=== PATIENT | male | born 1990 | race Caucasian/White ===

== ENCOUNTER 2019-11-01 08:03 | Outpatient (CLI) | payer MEDICARE, MEDICAID, SELFPAY ==
--- NOTE | 2019-11-01 09:30 | CT_ITS ---
WS: [id number] CT THORACIC SPINE HISTORY: Thoracic fracture TECHNIQUE: Contiguous 2.5 mm axial images are reviewed to thoracic spine. Images are reformatted in s agittal and coronal planes. All CT scans at [facility] use at least one of these dose opt imization techniques: automated exposure control; mA and/or kV adjustment per patient size (includes targeted exams where dose is matched to clinical indication); or iterative reconstruction. DLP: 1296.08 mGycm COMPARISON: 08/09/2019 Healing oblique fractures with various displacement from T5 through T12. No thoracic vertebral body f ractures. Spinous processes are intact. Normal alignment of the thoracic vertebral bodies. Very small endplate hypertrophic osteophytes are d eveloping. T1-2: Poorly visualized due to artifact. T2-3: Poorly visualized due to artifact. T3-4: Normal. T4-5: Normal. T5-6: Normal. T6-7: Normal. T7-8: Normal. T8-9: Normal. T9-10: Small RIGHT paracentral osteophyte and disc complex with slight contact on the RIGHT lateral cord. No interval change. T10-11: Normal. T11-12: Normal. CT/CT thoracic spin wo con* [id number] IMPRESSION: 1. Stages of various healing involving the spinous processes from T5 through T 12. 2. No vertebral body fracture.
--- NOTE | 2019-11-01 09:45 | CT_ITS ---
WS: [id number] CT LUMBAR SPINE, noncontrast. HISTORY: Low back pain TECHNIQUE: Contiguous 2.5 mm axial imaging are performed. Sagittal and coronal reformats are submitte d and reviewed. All CT scans at [facility] use at least one of these dose optimization te chniques: automated exposure control; mA and/or kV adjustment per patient size (includes targeted exa ms where dose is matched to clinical indication); or iterative reconstruction. IV contrast: None DLP: 1642.63 mGycm COMPARISON: 08/09/2019 Normal lumbar alignment. No fractures. Disc spaces are well-maintained. L1 spinous process fracture i s healed with a large amount of calcification. Fracture line is no longer lucent. L1-2: Normal. L2-3: Normal. L3-4: Mild annular disc bulging and mild facet arthropathy. Small thecal sac. Mild disc encroachment upon the subarticular recesses and foramen. Similar to the prior study. L4-5: Mild annular disc bulging and facet arthropathy. Significant encroachment upon the ventral thec al sac and foramen and subarticular recesses. There is at least moderate central, subarticular recess and foraminal stenosis. Probably not significantly progressed since the prior study. L5-S1: Annular disc bulging with a broad-based protrusion centrally. Significant narrowing of the frederick tral canal and subarticular recesses and foramen. Fat in the neural foramen is effaced. Bony narrowin g of the subarticular recesses. Retroperitoneum is negative. CT/CT lumbar spine wo con* [id number] IMPRESSION: 1. Healed oblique L1 spinous process fracture. 2. 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 Progr essive stenosis from L3 to S1. 3. Significant stenosis at L5-S1 with bony narrowing of the subarticular reces ses and foramina. 4. Moderate central, subarticular recess and foraminal stenosis at L4-5.
== END 2019-11-01 08:04 | disposition home or self-care (01) ==
LOC: RADWPI 08:15
PROVIDERS: Family Provider Nurse Practitioner Family; PCP Nurse Practitioner Family; Visit Provider Licensed Practical Nurse
DX: S22.000A Wedge compression fracture of unspecified thoracic vertebra, initial encounter for closed fracture (principal); X58.XXXA Exposure to other specified factors, initial encounter; M48.07 Spinal stenosis, lumbosacral region
CPT/HCPCS: 72128; 72131

== ENCOUNTER → 2020-04-08 08:30 | Outpatient (BNVA) | payer MEDICARE, MEDICAID, SELFPAY | PROVIDERS: Family Provider Nurse Practitioner Family; PCP Nurse Practitioner Family; Visit Provider Anesthesiology Pain Medicine | DX: M51.26 Other intervertebral disc displacement, lumbar region (principal); M51.17 Intervertebral disc disorders with radiculopathy, lumbosacral region; M54.9 Dorsalgia, unspecified; F17.210 Nicotine dependence, cigarettes, uncomplicated | CPT/HCPCS: 99204 ==

== ENCOUNTER 2020-04-17 09:29 | Outpatient (CLI) | payer MEDICARE, MEDICAID, SELFPAY ==
--- NOTE | 2020-04-17 09:30 | MR_ITS ---
WS: [id number] MRI LUMBAR SPINE NONCONTRAST TECHNIQUE: Sagittal T1, T2 and STIR imaging. Axial T1 and T2 imaging. CLINICAL INFORMATION: M51.26 Other intervertebral disc displacement, lumbar region COMPARISON: CT 2019 and MRI July 05, 2019 FINDINGS: Mild lumbar curve. No acute compression. Disc bulging worse L5-S1. L1-L2: Normal. L2-L3: No significant disc bulging. Mild facet arthropathy. Spinal canal and foramen are patent. L3-L4: Mild annular bulging with narrowing of the right subarticular recess. Mild right and no signif icant left foraminal narrowing. Mild to moderate facet arthropathy. L4-L5: Mild disc bulging with mild central canal stenosis. Narrowing of the subarticular recess bilat erally. Moderate facet arthropathy. Mild left and no right foraminal narrowing. Moderate facet arthro uri. L5-S1: Shallow left pericentral disc protrusion impinges the traversing left S1 nerve root in the sub articular recess. Moderate facet arthropathy. Moderate central canal stenosis. Mild right foraminal narrowing. Mild central canal stenosis in the cervical spine with small central protrusion C5-C6 seen on the sco ut imaging with mild central canal stenosis. Disc protrusions in the mid and lower thoracic spine at T7-8 and T9-10. This can be further evaluated with cervical and thoracic spine MRI. MR/MR lumbar spine wo con* [id number] IMPRESSION: 1. Shallow left pericentral protrusion L5-S1 impinges the traversing left S1 n erve root in the subarticular recess. Correlation left S1 nerve root symptoms. This is slightly progressed since 2019 2. Impingement on the right subarticular recess L3-L4 and bilateral L4-5. Mild central canal stenosis L4-5. 3. Small disc protrusions in the cervical and thoracic spine. This can be furt her evaluated with MRI. .
--- NOTE | 2020-04-17 11:30 | XR_ITS ---
WS: [id number] LUMBAR SPINE FLEXION AND EXTENSION TECHNIQUE: 3 views of the lumbar spine: Lateral neutral, flexion, and extension views. CLINICAL INFORMATION: Low back pain COMPARISON: None. FINDINGS: Normal lumbar alignment on the neutral view. No instability on the flexion and extension views. XR/XR lumbar spine f/e only [id number] IMPRESSION: No instability on flexion/extension
== END 2020-04-17 09:30 | disposition home or self-care (01) ==
LOC: RADWPI 09:31
PROVIDERS: Family Provider Nurse Practitioner Family; PCP Nurse Practitioner Family; Visit Provider Licensed Practical Nurse
DX: M51.26 Other intervertebral disc displacement, lumbar region (principal); M50.20 Other cervical disc displacement, unspecified cervical region; M51.24 Other intervertebral disc displacement, thoracic region
CPT/HCPCS: 72120; 72148

== ENCOUNTER → 2020-04-22 14:12 | Outpatient (BNVA) | payer MEDICARE, MEDICAID, SELFPAY | PROVIDERS: Family Provider Nurse Practitioner Family; PCP Nurse Practitioner Family; Visit Provider Anesthesiology Pain Medicine | DX: M51.26 Other intervertebral disc displacement, lumbar region (principal); M54.9 Dorsalgia, unspecified; F17.210 Nicotine dependence, cigarettes, uncomplicated | CPT/HCPCS: 64483; 64484; J1040; J3490 ==

== ENCOUNTER → 2020-05-17 10:49 | Outpatient (BNVA) | payer MEDICARE, MEDICAID, SELFPAY | PROVIDERS: Family Provider Nurse Practitioner Family; PCP Nurse Practitioner Family; Visit Provider Anesthesiology Pain Medicine | DX: M51.17 Intervertebral disc disorders with radiculopathy, lumbosacral region (principal); M54.9 Dorsalgia, unspecified | CPT/HCPCS: 64483; 64484; 99212; J1040; J3490 ==

== ENCOUNTER → 2020-06-14 13:34 | Outpatient (BNVA) | payer MEDICARE, MEDICAID, SELFPAY | PROVIDERS: Family Provider Nurse Practitioner Family; PCP Nurse Practitioner Family; Visit Provider Anesthesiology Pain Medicine | DX: M51.17 Intervertebral disc disorders with radiculopathy, lumbosacral region (principal); M54.9 Dorsalgia, unspecified; F17.210 Nicotine dependence, cigarettes, uncomplicated | CPT/HCPCS: 99213 ==

== ENCOUNTER 2020-06-19 20:00 | Outpatient (CLI) | payer MEDICARE, MEDICAID, SELFPAY | END 2020-06-19 20:01 | disposition home or self-care (01) | LOC: SLEEP 06-20 08:45 | PROVIDERS: Family Provider Nurse Practitioner Family; PCP Nurse Practitioner Family; Visit Provider Nurse Practitioner Family | DX: G47.10 Hypersomnia, unspecified (principal); R06.83 Snoring; R53.83 Other fatigue | CPT/HCPCS: 95810 ==

== ENCOUNTER → 2020-07-24 09:33 | Outpatient (BNVA) | payer MEDICARE, MEDICAID, SELFPAY | PROVIDERS: Family Provider Nurse Practitioner Family; PCP Nurse Practitioner Family; Visit Provider Anesthesiology Pain Medicine | DX: M51.26 Other intervertebral disc displacement, lumbar region (principal); M54.9 Dorsalgia, unspecified; F17.210 Nicotine dependence, cigarettes, uncomplicated | CPT/HCPCS: 99213; 99214 ==

== ENCOUNTER → 2020-08-21 12:36 | Outpatient (BNVA) | payer MEDICARE, MEDICAID, SELFPAY | PROVIDERS: Family Provider Nurse Practitioner Family; PCP Nurse Practitioner Family; Visit Provider Anesthesiology Pain Medicine | DX: M51.26 Other intervertebral disc displacement, lumbar region (principal); M54.16 Radiculopathy, lumbar region; M54.9 Dorsalgia, unspecified; F17.210 Nicotine dependence, cigarettes, uncomplicated | CPT/HCPCS: 64483; 64484; 99212; J1040; J3490 ==

== ENCOUNTER → 2020-09-18 10:51 | Outpatient (BNVA) | payer MEDICARE, MEDICAID, SELFPAY | PROVIDERS: Family Provider Nurse Practitioner Family; PCP Nurse Practitioner Family; Visit Provider Anesthesiology Pain Medicine | DX: G89.29 Other chronic pain (principal); M51.26 Other intervertebral disc displacement, lumbar region; M51.17 Intervertebral disc disorders with radiculopathy, lumbosacral region; M54.9 Dorsalgia, unspecified; F17.210 Nicotine dependence, cigarettes, uncomplicated | CPT/HCPCS: 99213; 99214 ==

== ENCOUNTER → 2020-11-13 09:32 | Outpatient (BNVA) | payer MEDICARE, MEDICAID, SELFPAY | PROVIDERS: Family Provider Nurse Practitioner Family; PCP Nurse Practitioner Family; Visit Provider Anesthesiology Pain Medicine | DX: G89.29 Other chronic pain (principal); M51.16 Intervertebral disc disorders with radiculopathy, lumbar region; M54.9 Dorsalgia, unspecified; F17.210 Nicotine dependence, cigarettes, uncomplicated; M54.5 Low back pain; M89.29 Other disorders of bone development and growth, multiple sites | CPT/HCPCS: 99214 ==

== ENCOUNTER 2020-11-13 14:56 | Outpatient (RCR) | payer MEDICARE, MEDICAID, SELFPAY | END 2020-12-11 23:59 | disposition home or self-care (01) | LOC: SPT 14:56 | PROVIDERS: PCP Nurse Practitioner Family; Referring Provider Anesthesiology Pain Medicine; Visit Provider Anesthesiology Pain Medicine | DX: M54.5 Low back pain (principal); M89.29 Other disorders of bone development and growth, multiple sites | CPT/HCPCS: 97110; 97161; 99214 ==

== ENCOUNTER → 2020-11-22 13:13 | Outpatient (BNVA) | payer MEDICARE, MEDICAID, SELFPAY | PROVIDERS: PCP Nurse Practitioner Family; Visit Provider Anesthesiology Pain Medicine | DX: M51.16 Intervertebral disc disorders with radiculopathy, lumbar region (principal); M54.9 Dorsalgia, unspecified; F17.210 Nicotine dependence, cigarettes, uncomplicated | CPT/HCPCS: 64483; 64484 ==

== ENCOUNTER → 2020-12-10 14:55 | Outpatient (BNVA) | payer MEDICARE, MEDICAID, SELFPAY | PROVIDERS: PCP Nurse Practitioner Family; Referring Provider Anesthesiology Pain Medicine; Visit Provider Orthopaedic Surgery | DX: M54.5 Low back pain (principal) | CPT/HCPCS: 72110 ==

== ENCOUNTER → 2020-12-16 08:49 | Outpatient (BNVA) | payer MEDICARE, MEDICAID, SELFPAY | PROVIDERS: PCP Nurse Practitioner Family; Visit Provider Anesthesiology Pain Medicine | DX: M51.26 Other intervertebral disc displacement, lumbar region (principal); M51.17 Intervertebral disc disorders with radiculopathy, lumbosacral region; M51.16 Intervertebral disc disorders with radiculopathy, lumbar region; M54.9 Dorsalgia, unspecified; F17.210 Nicotine dependence, cigarettes, uncomplicated | CPT/HCPCS: 99214 ==

== ENCOUNTER → 2020-12-20 11:53 | Outpatient (BNVA) | payer MEDICARE, MEDICAID, SELFPAY | PROVIDERS: PCP Nurse Practitioner Family; Visit Provider Orthopaedic Surgery | DX: Z20.822 Contact with and (suspected) exposure to COVID-19 (principal) | CPT/HCPCS: 87635 ==

== ENCOUNTER → 2020-12-30 13:43 | Outpatient (BNVA) | payer MEDICARE, MEDICAID, SELFPAY | PROVIDERS: PCP Nurse Practitioner Family; Visit Provider Orthopaedic Surgery | DX: Z01.818 Encounter for other preprocedural examination (principal); Z20.822 Contact with and (suspected) exposure to COVID-19 | CPT/HCPCS: 87635 ==

== ENCOUNTER 2021-01-03 11:43 | Day surgery (SDC) | payer MEDICARE, MEDICAID, SELFPAY ==
[2021-01-02 13:42] VITALS: BMI 37.5
[2021-01-03] VITALS (9 sets, daily range): BP systolic 110–142; BP diastolic 56–95; PULSE 99–121; RESP 18–22; TEMP 36.6–37; O2SAT 92–96
--- NOTE | 2021-01-03 | SCC_ITS ---
Procedure Done: Left L5/S1 laminectomy with partial facetectomy and diskectomy 20.7 seconds of fluoroscopic guidance, for a cumulative dose of 12.50 mGy, was provided to Dr. Mcgee by the radiology department. C-arm images of the lumbar spine were saved for the patient's permanent record. [facility]
[2021-01-03] MEDS: sodium chloride 0.9% 1,000 ML 30 ML IV (13:02)
--- NOTE | 2021-01-03 13:29 | W.PM.OPSUD ---
Surgery/Procedure H&P Update DATE OF PROCEDURE: January 03, 2021 DATE H&P PERFORMED: 12/10/20 H&P UPDATE INFORMATION: I have reviewed H&P completed within last 30 days, I have examined patient prior to procedure and No changes to prior documentation PREOP DIAGNOSIS: L5/S1 disc herniation left PLANNED PROCEDURE: Operation Date: 12/25/20 14:30 Proposed Procedures p L5-S1 mis decompression with discectomy 42173, 38951 M51.16(Not Applicable) - Ismael Mcgee DO Operation Date: 01/03/21 13:10 Proposed Procedures p L5-S1 Mis Decompression w/ descectomy 12358 46345 M51.16(Not Applicable) - Ismael Mcgee DO
--- NOTE | 2021-01-03 13:52 | ANES.PREANE2 ---
Pre-Anesthetic Assessment Pre-Anesthetic Assessment: Height/Weight: Height 1.91 m Weight 136.078 kg Temp Pulse Resp BP Pulse Ox 98.6 F 107 H 18 129/82 96 01/03/21 12:01 01/03/21 12:01 01/03/21 12:01 01/03/21 12:01 01/03/21 12:01 Preop Diagnosis: L5/S1 disc herniation left Proposed Procedure: Operation Date: 12/25/20 14:30 Proposed Procedures p L5-S1 mis decompression with discectomy 26520, 80607 M51.16(Not Applicable) - Ismael Mcgee DO Operation Date: 01/03/21 13:10 Proposed Procedures p L5-S1 Mis Decompression w/ descectomy 89331 67742 M51.16(Not Applicable) - Ismael Mcgee DO Was Beta Ana M taken within 24 hours: N/A Was Clonidine taken within 24 hours: N/A Last intake: Intake Last Liquid Date 01/02/21 Last Solid Date 01/02/21 Social: Social History: Tobacco and No alcohol Exam: Pre-Anes Outpt Exam: alert, oriented x 3 and regular rate & rhythm Airway: Submandibular: WNL Cervical ROM: WNL MP: 2 Dentition: Loose Pulmonary: Pulmonary: COPD Metabolic: Metabolic: Morbid obesity Musc/skel: Musc/skel: Lower Back Pain Anesthetic Plan: ASA status: 3 Anesthesia: General Risk of > 500 ml blood loss (7ml/kg in children): No Meds/Allergies Current Medications: Current Medications Generic Name Dose Route Start Last Admin Trade Name Freq PRN Reason Stop Dose Admin Sodium Chloride 1,000 mls @ 30 ml s/hr 01/03/21 12:00 01/03/21 13:02 Sodium Chloride 0.9% IV 01/04/21 11:59 30 mls/hr .Q24H ROGER Administration PFSH Anesthesia PFSH: Medical History Displacement of lumbar intervertebral disc Fracture of lumbar spine Fracture, thoracic vertebra, compression Surgical History History of cardiac radiofrequency ablation (~2005) Family History Grandmother CAD (coronary artery disease) Grandfather Diabetes Mother Arthritis Social History Smoking and tobacco status: current every day smoker cigarettes [ Other cigarette details: 0.5-1 PK PER DAY ] Alcohol intake: current Alcohol intake frequency: few times a week Lives independently: Yes Household members: family Marital status: Single Current occupational status: disabled History of recent travel: No Data Anesthesia Cardiac Studies: No Data to Display
--- NOTE | 2021-01-03 17:16 | PM.OP ---
Operative Report Date of procedure: January 03, 2021 Pre-op Diagnosis: L5/S1 disc herniation left Post-op diagnosis: same Procedure Done: Left L5/S1 laminectomy with partial facetectomy and diskectomy Surgeon: Ismael Mcgee Anesthesia: General Estimated blood loss (mL): 5 Condition: stable Disposition: PACU Procedure: Left L5/S1 laminectomy with partial facetectomy and diskectomy Patient is brought to the operative suite. After undergoing anesthesia they are placed in the supine position. All areas of impingement are well padded. Patient is then prepped and draped in the normal sterile fashion. A skin incision is made over the L5/S1 level. This is confirmed under c-arm guidance. A series of dilators are passed and the tubular retractor is docked on the L5 lamina. A bovie is used to clear the soft tissue off the lamina and the L 5/S1 facet joint. A high speed lashaun is then used to perform the laminectomy and take down the medial aspect of the L 5/S1 facet joint. A kerrison rongeure was then used to take down the remaining lamina and smooth the edge of the laminectomy up to the point where the ligamentum flavum attaches. Attention was then brought to the medial aspect of the facet joint. The remaining medial aspect of the superior and inferior aspect of the facet joint were taken down with the kerrison from the pedicle of L5 to S1. The facet joint had significant hypertrophy. Attention was then brought to the Ligamentum Flavum. The ligament was taken down from the lamina of L5 to S1 and out medially to the remaining facet joint. The ligament was thick. The dura was then exposed. The dura was in good repair. Nerve retractor was then placed to retract the S1 nerve medially. THe L5/S1 disk was identified. A micro nerve hook was used to open up tissue above disk. Disk fragments were removed with a micro pituitary. Once all the disc was adequately removed that was compressing on the S1 nerve displace was irrigated. The L5 nerve was then traced with a curette out the L5/S1 foramen and found to be adequately decompressed. The S1 nerve was traced with a curette around the S1 pedicle. The lateral recess was opened with a kerrison helping to further decompress the S1 nerve. Wound is then irrigated copiously with saline and surgiflo is used to stop any bleeding. The tubular retractor is removed and the wound is closed with vicryl and monocryl suture. Glue is then used to protect the wound. A sterile dressing is then placed. Patient was then placed in the supine position and transferred to the PACU in stable condition.
--- NOTE | 2021-01-03 17:22 | XR_ITS ---
WS: [id number] C-ARM RADIOGRAPHS LUMBAR SPINE; 4 IMAGES HISTORY: OR PICS COMPARISON: 12/10/2020 Intraoperative imaging during spine decompression and discectomy at L5-S1. Marker placed over the L5- S1 level. XR/XR lumbar spine 2-3V* [id number] IMPRESSION: Intraoperative decompression at L5-S1.
--- NOTE | 2021-01-03 17:52 | SUR.PHASEI ---
1752 pt is restless , rubbing face, pt does open eyes and responds verbally , then quickly back to sleep vss sats 89% on ra pt placed on 3lnc and sats quickly up to 93% resp even and unlabored pt moves all ext to command, strongly, vss.
--- NOTE | 2021-01-03 18:03 | ANE.PACU2 ---
Inpatient post-anesthesia follow up: Airway intact: Yes Vital signs: Temperature 98.6 F Pulse Rate 109 Respiratory Rate 19 Blood Pressure 124/64 Pulse Oximetry 92 Oxygen Delivery Me thod Nasal Cannula Oxygen Flow Rate 3 Fraction of Inspir ed Oxygen Hydration adequate: Yes Nausea and vomiting: No Pain level: 2 Mental status: Baseline
[2021-01-03] MEDS: HYDROcodone-acetaminophen 5-325 mg Tablet 1 TAB PO (18:50)
== END 2021-01-03 19:17 | disposition home or self-care (01) ==
PROVIDERS: PCP Nurse Practitioner Family; Visit Provider Orthopaedic Surgery
PROC: (CPT 63005; principal; 2021-01-03 12:40)
DX: M51.27 Other intervertebral disc displacement, lumbosacral region (principal); J44.9 Chronic obstructive pulmonary disease, unspecified; E66.01 Morbid (severe) obesity due to excess calories; Z68.37 Body mass index [BMI] 37.0-37.9, adult; F17.210 Nicotine dependence, cigarettes, uncomplicated
CPT/HCPCS: 63047; 72100; 76000; J0690; J1100; J1170; J2250; J2405; J2704; J2710; J3010; J3490; J7030

== ENCOUNTER 2021-03-28 06:00 | Outpatient (RCR) | payer MEDICARE, MEDICAID, SELFPAY | END 2021-04-12 23:59 | disposition home or self-care (01) | LOC: SPT 06:00 | PROVIDERS: PCP Nurse Practitioner Family; Referring Provider Orthopaedic Surgery; Visit Provider Orthopaedic Surgery | DX: Z47.89 Encounter for other orthopedic aftercare (principal) | CPT/HCPCS: 97110; 97161; 97530 ==

== ENCOUNTER → 2021-04-03 09:44 | Outpatient (BNVA) | payer MEDICARE, MEDICAID, SELFPAY | PROVIDERS: PCP Nurse Practitioner Family; Visit Provider Anesthesiology Pain Medicine | DX: M51.16 Intervertebral disc disorders with radiculopathy, lumbar region (principal); M51.17 Intervertebral disc disorders with radiculopathy, lumbosacral region; M51.26 Other intervertebral disc displacement, lumbar region; M25.552 Pain in left hip; F17.210 Nicotine dependence, cigarettes, uncomplicated; Z79.891 Long term (current) use of opiate analgesic | CPT/HCPCS: 99214 ==

== ENCOUNTER 2021-04-13 06:00 | Outpatient (RCR) | payer MEDICARE, MEDICAID, SELFPAY | END 2021-05-13 23:59 | disposition home or self-care (01) | LOC: SPT 06:00 | PROVIDERS: PCP Nurse Practitioner Family; Referring Provider Orthopaedic Surgery; Visit Provider Orthopaedic Surgery | DX: Z47.89 Encounter for other orthopedic aftercare (principal) | CPT/HCPCS: 97110 ==

== ENCOUNTER 2021-04-15 10:37 | Outpatient (CLI) | payer MEDICARE, MEDICAID, SELFPAY ==
--- NOTE | 2021-04-15 11:00 | MR_ITS ---
WS: [id number] MRI LUMBAR SPINE NONCONTRAST HISTORY: M51.16 - Intervertebral disc disorders with radiculopathy..., Recent surgery. LEFT leg pain and foot tingling. COMPARISON: 04/17/2020 TECHNIQUE: Sagittal and axial multisequence imaging is submitted. Mild straightening of the normal lumbar lordosis. Mild disc desiccation at L5-S1. No loss of disc spa ce height. No marrow edema or fracture. Conus terminates normally at L1. L1-L2: Normal. L2-L3: Mild facet arthritis. No stenosis. L3-L4: Mild annular disc bulging with facet and ligamentum flavum hypertrophy. Increase fluid in the facet joints. Very similar appearance to the prior examination. Mild to moderate narrowing and encroa chment of the foramen. L4-L5: Diffuse annular disc bulging is slightly asymmetric to the LEFT. Mild ligamentum flavum diseas e and facet arthritis. Fluid in the facet joints bilaterally. Mild central stenosis with mild bilater al subarticular and foraminal stenosis. Slightly greater disc contact on the LEFT L5 nerve root with minimal displacement. Similar to the prior study. L5-S1: There is increased soft tissue LEFT paracentral and LEFT lateral recess at the site of the skylar or surgery. There is deformity thecal sac and displacement of the LEFT S1 nerve root. Thecal sac is b eing deformed at least mild central stenosis. MR/MR lumbar spine wo con* [id number] IMPRESSION: 1. Increased soft tissue LEFT paracentral and LEFT lateral recess at L5-S1 def orming and displacing the LEFT thecal sac and S1 nerve root. With recent surgic al history cannot exclude fibrosis versus recurrent disc. Recommend follow-up l umbar spine MRI with contrast to differentiate scar from recurrent disc. 2. Mild central stenosis at L5-S1. 3. Mild central with mild bilateral subarticular foraminal stenosis at L4-5, s imilar to the prior study. Slightly greater contact on the LEFT L5 nerve root.
== END 2021-04-15 10:38 | disposition home or self-care (01) ==
LOC: RADSHAW 10:42
PROVIDERS: PCP Nurse Practitioner Family; Visit Provider Orthopaedic Surgery
DX: M51.16 Intervertebral disc disorders with radiculopathy, lumbar region (principal); M48.07 Spinal stenosis, lumbosacral region
CPT/HCPCS: 72148

== ENCOUNTER → 2021-05-29 10:21 | Outpatient (BNVA) | payer MEDICARE, MEDICAID, SELFPAY | PROVIDERS: PCP Nurse Practitioner Family; Visit Provider Anesthesiology Pain Medicine | DX: G89.29 Other chronic pain (principal); M48.062 Spinal stenosis, lumbar region with neurogenic claudication; M51.16 Intervertebral disc disorders with radiculopathy, lumbar region; M25.552 Pain in left hip; F17.210 Nicotine dependence, cigarettes, uncomplicated | CPT/HCPCS: 99214 ==

== ENCOUNTER → 2021-06-24 13:28 | Outpatient (BNVA) | payer MEDICARE, MEDICAID, SELFPAY | PROVIDERS: PCP Nurse Practitioner Family; Visit Provider Orthopaedic Surgery | DX: Z20.822 Contact with and (suspected) exposure to COVID-19 (principal); Z01.812 Encounter for preprocedural laboratory examination | CPT/HCPCS: 87635 ==

== ENCOUNTER 2021-06-30 05:55 | Day surgery (SDC) | payer MEDICARE, MEDICAID, SELFPAY ==
[2021-06-27 13:52] VITALS: BMI 38.1
[2021-06-30] VITALS (10 sets, daily range): BP systolic 123–144; BP diastolic 78–95; PULSE 77–99; RESP 14–22; TEMP 36.1–36.6; O2SAT 92–98
--- NOTE | 2021-06-30 | SCC_ITS ---
Procedure Done: Bilateral laminectomy with partial facetectomies 13.1 seconds of fluoroscopic guidance, for a cumulative dose of 9.30 mGy, was provided to Dr. Mcgee by the radiology department. C-arm images of the lumbar spine were saved for the patient's permanent record. [facility]
--- NOTE | 2021-06-30 | XR_ITS ---
WS: [id number] INTRAOPERATIVE TECHNIQUE: 2 Spot fluoroscopic images for intraoperative purposes. FLUOROSCOPY TIME: 13.1 seconds CLINICAL INFORMATION: decompression COMPARISON: None. FINDINGS: Localization marker projected over the L4-5 interspace XR/XR lumbar spine 1V [id number] IMPRESSION: Images obtained for intraoperative purposes.
[2021-06-30] MEDS: sodium chloride 0.9% 1,000 ML 30 ML IV (06:31)
--- NOTE | 2021-06-30 06:46 | P.HP_ITS ---
Providers/Chief Complaint Primary Care Provider: Skyler Schrader NP Chief Complaint: lumbar decompression History of Present Illness Aman Prince is a 31 year old male ack pain is still getting worse, he has started a new job washing dishes and this is aggravating his pain. Pain going down bilateral legs now alternating back and forth. lateral thighs failed conservative tx Review of Systems Narrative: General ROS: negative for weight changes, fever ENT ROS: negative for nasal congestion, drainage or bleeding, sore throat, dysphagia or ear pain Eyes: PERRL Hematological and Lymphatic ROS: negative for swollen glands or abnormal bleeding Endocrine ROS: negative for polyuria/polydpsia or new changes in weight Respiratory ROS: negative for cough, shortness of breath, or wheezing Cardiovascular ROS: negative for chest pain or dyspnea on exertion Gastrointestinal ROS: negative for reflux, abdominal pain, change in bowel habits, or black or bloody stools Musculoskeletal ROS: negative for back pain, neck pain, or joint pain or swelling except for current problem Neurological ROS: negative for TIA or stoke symptoms Skin: no rashes Medications/Allergies Home Medications Medication Instructions Recorded Confirmed Last Taken Type acetaminophen 500 mg tablet 500 mg PO .2 TID PRN tab 04/08/20 06/30/21 06/29/21 History montelukast 10 mg tablet 10 mg PO DAILY 04/08/20 06/30/21 06/29/21 History magnesium 250 mg tablet 250 mg PO DAILY 05/17/20 06/30/21 06/29/21 History duloxetine 30 mg capsule,delayed 30 mg PO DAILY 06/14/20 06/30/21 06/29/21 History release celecoxib 400 mg capsule 400 mg PO DAILY #30 cap MDD 1 04/03/21 06/30/21 Rx aripiprazole 10 mg tablet 10 mg PO DAILY 05/13/21 06/30/21 06/29/21 History gabapentin 800 mg tablet 800 mg PO TID #90 tab 05/29/21 06/30/21 06/29/21 Rx tizanidine [Zanaflex] 4 mg PO BID PRN 06/27/21 06/30/21 06/29/21 History Allergies Allergy/AdvReac Type Severity Reaction Status Date / Time No Known Allergies Allergy Verified 05/29/21 10:32 PFSH Acute PFSH: Medical History Displacement of lumbar intervertebral disc Fracture of lumbar spine Fracture, thoracic vertebra, compression Surgical History History of cardiac radiofrequency ablation (~2005) Family History Grandmother CAD (coronary artery disease) Grandfather Diabetes Mother Arthritis Social History Alcohol intake: current Alcohol intake frequency: few times a week Lives independently: Yes Household members: family Marital status: Single Current occupational status: disabled History of recent travel: No Vitals/I&O/Wt Last Vital Signs Temp 97 F L 06/30/21 06:02 Pulse 83 06/30/21 06:02 Resp 16 06/30/21 06:02 BP 128/78 06/30/21 06:02 Pulse Ox 98 06/30/21 06:02 Physical Exam Narrative: EXAM NARRATIVE: CONSTITUTIONAL: The patient is a normal appearing [] in no apparent distress. GENERAL: Patient in no acute distress. CARDIAC: Regular rate and rhythm. CHEST: Normal inspiratory effort, normal respiratory rate. ABDOMEN: Soft and nontender. SKIN: Clear, warm and intact. NEURO?PSYCH: The patient is alert and oriented to person, place and time. Sensorv /SILT Motor StrengthShoulder abduction C5 5/5Wrist extension C6 5/5Elbow extension C7 5/5Hand Straw Hat Brim Cutter Operator C8 5/5Finger abduction T15/5 Radial/ Ulnar/ Median n intact LowerSensory (SILT)Motor StrengthHin flexion L2/3Ant/inner thigh 5/5Hip adduction L2/3 5/5Knee extension L4 Lat thigh, 5/5Toe dorsiflexion L5 5/5Ankle dorsiflexion L5/ [id number] flexion S1 5/5 DTRBleeps 2+Triceps 2+Brachioradialis 2+Patellar 2+Achilles 2+ MUSCULOSKELETAL: [] UPPEREXTREMITIES: The patient had full active ROM in fingers, wrist, elbow, and shoulder. The patient demonstrated ability to fully flex/extend/abduct/adduct fingers, make ok sign, cross 2nd/3rd digits, extend 1st digit fully.. Radial pulse 2+, CR<2 seconds. LOWER EXTREMITIES: Pt has full, active ROM of toes, ankle, knee, and hip. Dorsalis pedis/posterior tibialis pulses 2+, CR<2 seconds. SPINE: Skin warm, dry, intact. A&P Assessment and plan (1) Lumbar stenosis with neurogenic claudication: L4/5 lumbar decompression Status: Acute Attestations Medical Necessity Statement*: failed conservative tx Coding Level of Care Code Acute Ancillary Services Manager Therapy for [facility] Fwd Diagnoses Lumbar stenosis with neurogenic claudication M48.062
--- NOTE | 2021-06-30 06:52 | ANES.PREANE2 ---
Pre-Anesthetic Assessment Pre-Anesthetic Assessment: Height/Weight: Height 1.91 m Weight 138.346 kg Temp Pulse Resp BP Pulse Ox 97 F L 83 16 128/78 98 06/30/21 06:02 06/30/21 06:02 06/30/21 06:02 06/30/21 06:02 06/30/21 06:02 Preop Diagnosis: L5/S1 disc herniation left Proposed Procedure: Operation Date: 06/30/21 07:00 Proposed Procedures p Lumbar Spine Decompression 05335 M48.062(Not Applicable) - Ismael Mcgee, DO Was Beta Ana M taken within 24 hours: N/A Was Clonidine taken within 24 hours: N/A Last intake: Intake Last Liquid Date 06/30/21 Last Liquid Time 00:00 Last Solid Date 06/30/21 Last Solid Time 00:00 Social: Social History: Tobacco Exam: Pre-Anes Outpt Exam: alert, oriented x 3 and regular rate & rhythm Airway: Submandibular: WNL Cervical ROM: WNL MP: 2 Dentition: Chipped Pulmonary: Pulmonary: COPD Metabolic: Metabolic: Morbid obesity Musc/skel: Musc/skel: Lower Back Pain Anesthetic Plan: ASA status: 3 Anesthesia: General Risk of > 500 ml blood loss (7ml/kg in children): No Meds/Allergies Current Medications: Current Medications Generic Name Dose Route Start Last Admin Trade Name Freq PRN Reason Stop Dose Admin Sodium Chloride 1,000 mls @ 30 ml s/hr 06/30/21 06:00 06/30/21 06:31 Sodium Chloride 0.9% IV 07/01/21 05:59 30 mls/hr .Q24H ROGER Administration PFSH Anesthesia PFSH: Medical History Displacement of lumbar intervertebral disc Fracture of lumbar spine Fracture, thoracic vertebra, compression Surgical History History of cardiac radiofrequency ablation (~2005) Family History Grandmother CAD (coronary artery disease) Grandfather Diabetes Mother Arthritis Social History Alcohol intake: current Alcohol intake frequency: few times a week Lives independently: Yes Household members: family Marital status: Single Current occupational status: disabled History of recent travel: No Data Anesthesia Cardiac Studies: No Data to Display
--- NOTE | 2021-06-30 08:15 | P.OP_ITS ---
Operative Report Date of procedure: June 30, 2021 Pre-op Diagnosis: L4/5 lumbar stenosis with neurogenic claudication Post-op diagnosis: same Procedure Done: Bilateral laminectomy with partial facetectomies Surgeon: Ismael Mcgee Asset Protection Professional: Cedrick Tuttle Asset Protection Professional: The certified surgical first assistant, Cedrick Tuttle, PAC was needed for his expertise under the microscope. He was important and necessary throughout the procedure to complete in a safe and timely manner. He assisted with patient positioning prepping and draping tissue retraction suctioning of the operative field protection of the dural sac and tissue closure Anesthesia: General Estimated blood loss (mL): 5 Condition: stable Disposition: PACU Procedure: Bilateral laminectomy with partial facetectomies Patient is brought to the operative suite. After undergoing anesthesia they are placed in the prone position. All areas of impingement are well padded. Patient is then prepped and draped in the normal sterile fashion. A skin incision is made over the L4/5 level. This is confirmed under c-arm guidance. A series of dilators are passed and the tubular retractor is docked on the L4 lamina. A bovie is used to clear the soft tissue off the lamina and the L 4/5 facet joint. A high speed lashaun is then used to perform the laminectomy and take down the medial aspect of the L 4/5 facet joint. A kerrison rongeure was then used to take down the remaining lamina and smooth the edged of the laminectomy up to the point where the ligamentum flavum attaches. Attention was then brought to the medial aspect of the facet joint. The remain ing medial aspect of the superior and inferior aspect of the facet joint were taken down with the kerrison from the pedicle of L4 to L 5. The facet joint had significant hypertrophy. Attention was then brought to the Ligamentum Flavum. The ligament was taken down from the lamina of L4 to L5 and out medially to the remaining facet joint. The ligament was thick. The dura was then exposed. The dura was in good repair. The L4 nerve was then traced with a curette out the L4/5 foramen and found to be adequately decompressed. The L5 nerve was traced with a curette around the L5 pedicle. The lateral recess was opened with a kerrison helping to further decompress the L5 nerve. The tubular retractor was then tilted to the contralateral side. The bovie was used to take down the soft tissue on the spinous process. The high speed lashaun was used to take down the spinous process and then the contralateral lamina of L4. The kerrison rongeur was used to take down the remaining lamina to the point where the ligamentum flavum attached and the ligamentum flavum was taken down from L4 to L5. The kerrison rongeur was then used to reach across and take down the medial aspect of the contralateral L4/5 facet joint.The currete was used to trace the contralateral L4 nerve out the L4/5 foramen to make sure it was decompressed adequatesly and the L5 was traced around the L5 pedicle. The lateral recess was opened further with the kerrison to ensure the L5 is adequately decompressed. Wound is then irrigated copiously with saline and surgiflo is used to stop any bleeding. The tubular retractor is removed and the wound is closed with vicryl and monocryl suture. Glue is then used to protect the wound. A sterile dressing is then placed. Patient was then placed in the supine position and transferred to the PACU in stable condition.
--- NOTE | 2021-06-30 08:23 | P.PCN_ITS ---
PACU note PACU note: VSS, Good respiratory effort, report to TRADE EMBALMER Post-Anesthesia Exam: awake
--- NOTE | 2021-06-30 08:23 | PM.PACU ---
PACU note PACU note: VSS, Good respiratory effort, report to NUCLEAR TECHNOLOGIST Post-Anesthesia Exam: awake
--- NOTE | 2021-06-30 08:24 | SUR.PHASEI ---
PT AWAKES TO VOICE , FOLLOWS COMMANDS, PT MOVES BILAT FEET STRONGLY, PT ON RA TRIAL, VSS.
--- NOTE | 2021-06-30 08:32 | SUR.PHASEI ---
PT PLACED ON 3LNC TO KEEPS SATS OVER 92% PT SLEEPS UNLESS DISTURBED AND DENIES PAIN AT THIS TIME MONITOR SR NO ECTOPY, VSS.
[2021-06-30 09:27] LABS: Glucose Point of Care 81 mg/dL (70-110)
--- NOTE | 2021-06-30 15:40 | ANE.PACU2 ---
Inpatient post-anesthesia follow up: Airway intact: Yes Vital signs: Temperature 97 F Pulse Rate 77 Respiratory Rate 16 Blood Pressure 136/80 Pulse Oximetry 98 Oxygen Delivery Me thod Room Air Oxygen Flow Rate 3 Fraction of Inspir ed Oxygen Hydration adequate: Yes Nausea and vomiting: No Pain level: 3 Mental status: Baseline
== END 2021-06-30 09:25 | disposition home or self-care (01) ==
PROVIDERS: PCP Nurse Practitioner Family; Visit Provider Orthopaedic Surgery
PROC: (CPT 63005; principal; 2021-06-30 07:00)
DX: M48.062 Spinal stenosis, lumbar region with neurogenic claudication (principal); J44.9 Chronic obstructive pulmonary disease, unspecified; E66.01 Morbid (severe) obesity due to excess calories; Z68.34 Body mass index [BMI] 34.0-34.9, adult; Z82.49 Family history of ischemic heart disease and other diseases of the circulatory system; Z83.3 Family history of diabetes mellitus
CPT/HCPCS: 63047; 36416; 72020; 76000; 82962; 96365; J0330; J0690; J1100; J2405; J2704; J2710; J3010; J3490; J7030

== ENCOUNTER → 2021-07-24 12:24 | Outpatient (BNVA) | payer MEDICARE, MEDICAID, SELFPAY | PROVIDERS: PCP Nurse Practitioner Family; Visit Provider Anesthesiology Pain Medicine | DX: M51.26 Other intervertebral disc displacement, lumbar region (principal); M48.062 Spinal stenosis, lumbar region with neurogenic claudication; M51.16 Intervertebral disc disorders with radiculopathy, lumbar region; M25.552 Pain in left hip; M79.605 Pain in left leg; Z79.891 Long term (current) use of opiate analgesic | CPT/HCPCS: 99213 ==

== ENCOUNTER → 2021-10-02 13:37 | Outpatient (BNVA) | payer MEDICARE, MEDICAID, SELFPAY | PROVIDERS: PCP Nurse Practitioner Family; Visit Provider Anesthesiology Pain Medicine | DX: M51.26 Other intervertebral disc displacement, lumbar region (principal); M48.062 Spinal stenosis, lumbar region with neurogenic claudication; M51.16 Intervertebral disc disorders with radiculopathy, lumbar region; M25.552 Pain in left hip; Z79.891 Long term (current) use of opiate analgesic | CPT/HCPCS: 99214 ==

== ENCOUNTER → 2021-10-21 13:40 | Outpatient (BNVA) | payer MEDICARE, MEDICAID, SELFPAY | PROVIDERS: PCP Nurse Practitioner Family; Visit Provider Nurse Practitioner Family | DX: Z20.822 Contact with and (suspected) exposure to COVID-19 (principal); J45.909 Unspecified asthma, uncomplicated; E66.9 Obesity, unspecified; R43.0 Anosmia; J06.9 Acute upper respiratory infection, unspecified; Z71.89 Other specified counseling; F17.200 Nicotine dependence, unspecified, uncomplicated | CPT/HCPCS: 87635 ==

== ENCOUNTER 2021-10-28 09:28 | Outpatient (CLI) | payer MEDICARE, MEDICAID, SELFPAY ==
--- NOTE | 2021-10-28 09:39 | MR_ITS ---
WS: [id number] MRI LUMBAR SPINE WITH AND WITHOUT CONTRAST HISTORY: Spinal stenosis. Prior lumbar spine surgery. COMPARISON: 04/15/2021 and 04/17/2020 TECHNIQUE: Sagittal and axial multisequence imaging is submitted. Sagittal and axial T1 fat sat seque nces post-MultiHance 20 cc IV. Straightening of the normal cervical lordosis. Mild disc and osteophyte contact on the ventral cervic al cord at C3-4 and C4-5. Mild straightening of the normal posterior lumbar alignment. Mild disc desiccation and narrowing at L 5-S1. No marrow edema or fractures. Conus terminates normally at L1-2 disc level. L1-L2: No stenosis. L2-L3: Mild ligamentum flavum hypertrophy and facet arthritis. No high-grade stenosis. L3-L4: Mild annular disc bulging with mild ligamentum flavum and facet arthritis. Mild narrowing of t he central canal and foramina. L4-L5: Mild annular disc bulging and osteophytic ridging. Disc bulging is asymmetric to the LEFT. Mil d central, bilateral subarticular and foraminal stenosis. Stenosis most likely due to congenital smal l central stenosis and short pedicles. Small amount of fluid in the facet joints. There is disc conta ct on the traversing L5 nerve roots. L5-S1: Diffuse asymmetric disc bulging. Again noted is a LEFT paracentral and proximal foraminal incr eased soft tissue contacting the LEFT S1 nerve root. Deformity upon the thecal sac. There is at least mild if not moderate central stenosis. Mild bilateral foraminal stenosis. On the postcontrast imagin g there is enhancement surrounding the thecal sac and the LEFT facet joint. There is also mild enhanc ement within the soft tissue in the LEFT paracentral region suggesting this is fibrosis and postsurgi carmelo and not related to recurrent disc. There is enhancement through the laminectomy defect at L4-5 and L5-S1. No abscess. MR/MR lumbar spine wo/w con [id number] IMPRESSION: 1. 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 2. Postsurgical changes and laminectomy defects on the LEFT at L4-5 and L5-S1. No abscess. 3. Soft tissue in the LEFT paracentral and proximal foramen at L5-S1 does enha nce suggesting this is related to gliosis and fibrosis and not a recurrent disc protrusion. There is bony narrowing of the LEFT subarticular recess. 4. Mild central and foraminal narrowing at L3-4. 5. Mild central, bilateral subarticular recess and foraminal stenosis at L4-5 with mild disc contact on the traversing L5 nerve roots, unchanged. 6. Mild bilateral foraminal stenosis at L5-S1.
[2021-10-28] MEDS: gadobenate dimeglumine 20 mL vial IV (11:42)
== END 2021-10-28 09:29 | disposition home or self-care (01) ==
LOC: RAD 09:38
PROVIDERS: PCP Nurse Practitioner Family; Visit Provider Orthopaedic Surgery
DX: M48.062 Spinal stenosis, lumbar region with neurogenic claudication (principal); M96.1 Postlaminectomy syndrome, not elsewhere classified; M48.07 Spinal stenosis, lumbosacral region
CPT/HCPCS: 72158

== ENCOUNTER → 2021-11-19 09:42 | Outpatient (BNVA) | payer MEDICARE, MEDICAID, SELFPAY | PROVIDERS: PCP Nurse Practitioner Family; Visit Provider Anesthesiology Pain Medicine | DX: M48.062 Spinal stenosis, lumbar region with neurogenic claudication (principal); M51.16 Intervertebral disc disorders with radiculopathy, lumbar region; M25.552 Pain in left hip; M79.605 Pain in left leg; F17.210 Nicotine dependence, cigarettes, uncomplicated | CPT/HCPCS: 99214 ==

== ENCOUNTER → 2021-12-09 14:56 | Outpatient (BNVA) | payer MEDICARE, MEDICAID, SELFPAY | PROVIDERS: PCP Nurse Practitioner Family; Visit Provider Anesthesiology Pain Medicine | DX: M54.16 Radiculopathy, lumbar region (principal); M79.605 Pain in left leg; F17.210 Nicotine dependence, cigarettes, uncomplicated | CPT/HCPCS: 64483; 64484; J1100; J3490 ==

== ENCOUNTER → 2021-12-25 13:24 | Outpatient (BNVA) | payer MEDICARE, MEDICAID, SELFPAY | PROVIDERS: PCP Nurse Practitioner Family; Visit Provider Psychiatry & Neurology Psychiatry | DX: F79 Unspecified intellectual disabilities (principal); F12.21 Cannabis dependence, in remission; F33.1 Major depressive disorder, recurrent, moderate; F63.81 Intermittent explosive disorder | CPT/HCPCS: 90792; 99999 ==

== ENCOUNTER → 2021-12-30 09:01 | Outpatient (BNVA) | payer MEDICARE, MEDICAID, SELFPAY | PROVIDERS: PCP Nurse Practitioner Family; Visit Provider Anesthesiology Pain Medicine | DX: M51.26 Other intervertebral disc displacement, lumbar region (principal); M51.16 Intervertebral disc disorders with radiculopathy, lumbar region; M48.062 Spinal stenosis, lumbar region with neurogenic claudication; M79.605 Pain in left leg; F17.210 Nicotine dependence, cigarettes, uncomplicated | CPT/HCPCS: 99213 ==

== ENCOUNTER 2022-01-06 06:00 | Outpatient (RCR) | payer MEDICARE, MEDICAID, SELFPAY | END 2022-01-10 23:59 | disposition home or self-care (01) | LOC: SPT 06:00 | PROVIDERS: PCP Nurse Practitioner Family; Referring Provider Orthopaedic Surgery; Visit Provider Orthopaedic Surgery | DX: M54.50 Low back pain, unspecified (principal) | CPT/HCPCS: 97110; 97161 ==

== ENCOUNTER 2022-01-11 06:00 | Outpatient (RCR) | payer MEDICARE, MEDICAID, SELFPAY | END 2022-02-10 23:59 | disposition home or self-care (01) | LOC: SPT 06:00 | PROVIDERS: PCP Nurse Practitioner Family; Referring Provider Orthopaedic Surgery; Visit Provider Orthopaedic Surgery | DX: M54.50 Low back pain, unspecified (principal) | CPT/HCPCS: 97110 ==

== ENCOUNTER 2022-02-11 06:00 | Outpatient (RCR) | payer MEDICARE, MEDICAID, SELFPAY | END 2022-03-12 14:03 | disposition home or self-care (01) | LOC: SPT 06:00 | PROVIDERS: PCP Nurse Practitioner Family; Referring Provider Orthopaedic Surgery; Visit Provider Orthopaedic Surgery | DX: M54.16 Radiculopathy, lumbar region (principal) | CPT/HCPCS: 97110 ==

== ENCOUNTER 2022-04-21 11:25 | Outpatient (CLI) | payer MEDICARE, MEDICAID, SELFPAY ==
--- NOTE | 2022-04-21 11:34 | XRR_ITS ---
PROCEDURE INFORMATION: Exam: XR Right Knee Exam date and time: 04/21/2022 11:37 AM Age: 31 years old Clinical indication: Right; Patient HX: RT knee pain around the patella dull. Feels as if it wants to pop out place x 1wk; Additional info: R knee pain TECHNIQUE: Imaging protocol: Radiologic exam of the Right knee. Views: 3 views. Total images: 43 COMPARISON: No relevant prior studies available. FINDINGS: Bones/joints: Normal. Soft tissues: Normal. XR/XR knee RT 3V* [id number] IMPRESSION: No acute findings.
== END 2022-04-21 11:26 | disposition home or self-care (01) ==
LOC: RAD 11:29
PROVIDERS: PCP Nurse Practitioner Family; Visit Provider Family Medicine
DX: M25.561 Pain in right knee (principal)
CPT/HCPCS: 73562

== ENCOUNTER → 2022-04-30 10:55 | Outpatient (BNVA) | payer MEDICARE, MEDICAID, SELFPAY | PROVIDERS: PCP Nurse Practitioner Family; Visit Provider Anesthesiology Pain Medicine | DX: M51.26 Other intervertebral disc displacement, lumbar region (principal); M51.16 Intervertebral disc disorders with radiculopathy, lumbar region; M48.062 Spinal stenosis, lumbar region with neurogenic claudication; M25.361 Other instability, right knee; M25.552 Pain in left hip; M79.605 Pain in left leg; F17.210 Nicotine dependence, cigarettes, uncomplicated | CPT/HCPCS: 99214 ==

== ENCOUNTER → 2022-09-08 13:43 | Outpatient (BNVA) | payer MEDICARE, MEDICAID, SELFPAY | PROVIDERS: PCP Nurse Practitioner Family; Visit Provider Internal Medicine Cardiovascular Disease | DX: R00.2 Palpitations (principal); F12.21 Cannabis dependence, in remission; F63.81 Intermittent explosive disorder; F33.1 Major depressive disorder, recurrent, moderate; F79 Unspecified intellectual disabilities; M51.16 Intervertebral disc disorders with radiculopathy, lumbar region; F17.210 Nicotine dependence, cigarettes, uncomplicated | CPT/HCPCS: 93246; 99204 ==

== ENCOUNTER 2023-03-02 11:15 | Emergency (ER) | payer MEDICARE, MEDICAID, SELFPAY ==
[2023-03-02] VITALS (71 sets, daily range): BP systolic 98–147; BP diastolic 54–85; PULSE 63–140; RESP 13–32; TEMP 37; O2SAT 76–100
--- NOTE | 2023-03-02 11:27 | XR_ITS ---
WS: [id number] EXAMINATION: XR chest 1V portable [id number] REASON FOR EXAM: Pleuritic pain, shortness of breath COMPARISON: 06/15/2019 ORDER DATE: 03/02/2023 11:29 AM TECHNIQUE: A single, portable frontal chest x-ray was obtained. X-RAY FINDINGS: There is a patchy triangular peripheral infiltrate bordering the minor fissure and lateral pleura in the mid right hemithorax.. Pleural spaces are clear. No pleural effusions or pneumothorax. Cardiomediastinal silhouette is normal. No evidence for pulmonary edema. Soft tissue and osseous structures are unremarkable.No tubes or lines are present. XR/XR chest 1V portable [id number] IMPRESSION: Peripheral right upper lobe pneumonia. Recommend follow-up to resolution.
--- NOTE | 2023-03-02 11:39 | ED_ITS ---
HPI - SOB/Dyspnea General: Chief Complaint: Shortness of Breath/Dyspnea Stated Complaint: SOB, Lung pain Time Seen by Provider: 03/02/23 11:34 History of Present Illness: HPI Narrative: Patient presents to the ER with complaints for the last 2 days of heart racing shortness of breath. Patient's had this multiple times in the past even had an ablation when he was 18 years old[address] Patient sees Dr. Corona and was recently started on metoprolol but has not taken metoprolol in a week. MD elicited complaint: shortness of breath and pain with inspiration Onset (ago): day(s) (2 days ago) Timing: constant Severity: moderate Exacerbating factors: nothing Relieving factors: nothing Treatment prior to arrival: none Review of Systems General: Reports: 10 or more systems reviewed and unremarkable except in HPI and below PFSH ED PFSH: Medical History Displacement of lumbar intervertebral disc Fracture of lumbar spine Fracture, thoracic vertebra, compression Psychiatric care Smoker SVT (supraventricular tachycardia) Surgical History History of cardiac radiofrequency ablation (~2005) Hx of circumcision at Family History Grandmother CAD (coronary artery disease) Grandfather Diabetes Mother Arthritis Social History Smoking and tobacco status: current every day smoker cigarettes Packs smoked per day: 0.75 Years cigarettes smoked: 15 [ Other cigarette details: 0.5-1 PK PER DAY ] Quit status (tobacco): considering quitting Second hand smoke exposure: Yes Alcohol intake: current Alcohol intake frequency: few times a week Substance/Drug Use: current Lives independently: Yes Household members: family Marital status: Single Current occupational status: disabled Physical Exam Const: COMMON NORMALS: no acute distress, average body habitus, patient oriented x3, no limitations, alert and well nourished HENMT: COMMON NORMALS: normocephalic, atraumatic, hearing grossly normal bilaterally, external ears normal and Normal external nose present HEAD & SCALP: normocephalic and atraumatic NOSE: Normal external nose present EXTERNAL EAR: Yes external ears normal Eye: COMMON NORMALS: Equal, round and reactive pupils present, EOMs intact bilaterally, conjunctivae normal and no scleral icterus CONJUNCTIVA: Yes conjunctivae normal PUPIL: Yes Equal, round and reactive pupils present Chest: COMMONS NORMALS: normal inspection of the chest and normal palpation of entire chest wall Resp: COMMON NORMALS: normal respiratory effort, No retractions, No use of accessory muscles and clear to auscultation bilaterally AUSCULTATION: clear to auscultation bilaterally Cardio: OTHER: Regular tachycardic rhythm GI: COMMON NORMALS: Normal to inspection, nondistended, normoactive bowel sounds present, Soft to palpation, non-tender and No hepatosplenomegaly present PALPATION: Yes Soft to palpation and Yes No hepatosplenomegaly present : COMMON NORMALS: Yes no CVA tenderness BLADDER/KIDNEY EXAM: Yes no CVA tenderness Back/Pelvis: COMMON NORMALS: no CVA tenderness Extremity: NARRATIVE EXTREMITY EXAM: No edema bilateral lower extremities Neuro: COMMON NORMALS: patient oriented x3 SENSORIUM/ORIENTATION: Yes alert Course Vital Signs: Vital signs: Vital Signs Temperature 98.6 F 03/02/23 11:27 Pulse Rate 128 H 03/02/23 14:04 Respiratory Rate 20 H 03/02/23 13:57 Blood Pressure 138/85 03/02/23 12:45 Pulse Oximetry 92 03/02/23 13:57 Oxygen Delivery Me thod Nasal Cannula 03/02/23 13:57 Oxygen Flow Rate 2 03/02/23 13:57 MDM - SOB/Dyspnea Medical Decision Making Called [facility] transfer line and they are on divert for ICU and they do not have any beds currently for [facility]. So we will call [facility]. [facility] transfer center called a give us to [facility] who the female ER physician accepted patient transfer but did want a troponin and a cardiac BNP., Patient's had increasing shortness of breath over the last couple days. Patient does have a cardiac history of SVT with ablation in the past. Patient is diaphoretic and short of breath at this time. Patient denies any chest pain. Work-up was obtained which showed a white count of 16.5 a chest x-ray showed possible pneumonia, patient did require 2 L of oxygen to keep his sat up to 93% therefore CTA was obtained which showed extensive bilateral pulmonary embolism. Patient be transferred to [facility]. Differential Diagnosis Unlikely acute exacerbation of chronic obstructive airways disease, congestive heart failure, community acquired pneumonia, asthma with exacerbation or pulmonary embolism Medical Records I reviewed the patient's medical records. Lab Data I reviewed the patient's lab results. 03/02/23 11:40 03/02/23 11:40 Labs/Radiology: Radiology Impressions Chest X-Ray 03/02/23 11:27 IMPRESSION: Peripheral right upper lobe pneumonia. Recommend follow-up to resolution. Chest CTA 03/02/23 14:00 IMPRESSION: 1. Extensive bilateral pulmonary embolus involving the RIGHT greater than LEFT segmental and subsegmental pulmonary arteries. This is worse on the RIGHT with extensive clot in the RIGHT distal main pulmonary artery extending distally. 2. Evidence of RIGHT heart strain with paradoxical septal deviation. 3. Bibasilar atelectasis. Groundglass and fibrotic appearing opacities in RIGHT upper lobe peripherally. This may be due to chronic infectious or inflammatory etiologies. Pulmonary infarcts not excluded. 4. No significant pleural fluid Notified Jose Cuevas DO at 03/02/2023 2:31 PM. Laboratory Results WBC 16.5 10^3/uL (4.0-10.0) H 03/02/23 11:40 RBC 4.71 10^6/uL (4.1-5.3) 03/02/23 11:40 Hgb 14.7 g/dL (11.7-16.6) 03/02/23 11:40 Hct 43.9 % (42.0-52.0) 03/02/23 11:40 MCV 93.2 fl (80-94) 03/02/23 11:40 MCH 31.2 pg (28.0-34.0) 03/02/23 11:40 MCHC 33.5 g/dL (30.0-36.0) 03/02/23 11:40 RDW 12.1 % (12.1-15.1) 03/02/23 11:40 Plt Count 151 10^3/cmm (130-400) 03/02/23 11:40 MPV 9.0 fL (7.4-10.4) 03/02/23 11:40 Neut % (Auto) 81.6 % 03/02/23 11:40 Lymph % (Auto) 12.2 % 03/02/23 11:40 Kingfisher % (Auto) 5.6 % 03/02/23 11:40 Eos % (Auto) 0.0 % 03/02/23 11:40 Baso % (Auto) 0.2 % 03/02/23 11:40 Neut # (Auto) 13.50 10^3/uL (1.8-7.7) H 03/02/23 11:40 Lymph # (Auto) 2.0 10^3/uL (0.8-4.8) 03/02/23 11:40 Kingfisher # (Auto) 0.9 10^3/uL (0.2-0.9) 03/02/23 11:40 Eos # (Auto) 0.0 10^3/uL (0.0-0.8) 03/02/23 11:40 Baso # (Auto) 0.0 10^3/uL (0.0-0.1) 03/02/23 11:40 Nucleated RBC % (auto) 0 % 03/02/23 11:40 Nucleated RBCs # 0.0 /100WBC 03/02/23 11:40 Sodium 134 mmol/L (136-145) L 03/02/23 11:40 Potassium 3.9 mmol/L (3.5-5.1) 03/02/23 11:40 Chloride 94 mmol/L (98-107) L 03/02/23 11:40 Carbon Dioxide 25 mmol/L (22-29) 03/02/23 11:40 Anion Gap 18.9 (5-19) 03/02/23 11:40 BUN 12 mg/dL (6-20) 03/02/23 11:40 Creatinine 1.1 mg/dL (0.7-1.2) 03/02/23 11:40 GFR Calculation 78.6 mL/min (90-130) L 03/02/23 11:40 Glucose 140 mg/dL (65-115) H 03/02/23 11:40 Calculated Osmolality 280 mOsm/kg (285-295) L 03/02/23 11:40 Calcium 9.6 mg/dL (8.5-10.5) 03/02/23 11:40 Total Bilirubin 0.9 mg/dL (0.15-1.2) 03/02/23 11:40 AST 14 U/L (0-40) 03/02/23 11:40 ALT 12 U/L (0-41) 03/02/23 11:40 Alkaline Phosphatase 103 U/L (40-130) 03/02/23 11:40 Total Protein 8.1 g/dL (6.6-8.7) 03/02/23 11:40 Albumin 3.8 g/dL (3.5-5.2) 03/02/23 11:40 Globulin 4.3 g/dL (1.3-4.6) 03/02/23 11:40 EKG Data EKG 1: I personally reviewed and interpreted this EKG as follows: EKG Interpretation Date: 03/02/23 EKG interpretation time: 11:41 Prior EKG tracings: not available for review Interpretation: EKG showed ventricular rate 133 beats a minute, LA interval 127, QRS duration 101, QTc 362, sinus tachycardia, indeterminate axis, incomplete right bundle branch block. Discharge Plan Discharge Patient Disposition: Xfer Short-Term Hosp Clinical Impression: Pulmonary embolism, Tachycardia, Hypoxia Condition: Stable Prescriptions: No Action montelukast [Singulair] 10 mg tablet 10 mg PO DAILY magnesium 250 mg tablet 500 mg PO DAILY albuterol sulfate [ProAir HFA] 90 mcg/actuation HFA aerosol inhaler 2 puff inhalation Q6H PRN bupivacaine (PF) 0.25 % (2.5 mg/mL) solution 2 ml Infiltration ONCE Qty: 1 0RF dexamethasone sodium phos (PF) 10 mg/mL solution 8 mg Infiltration ONCE Qty: 0.8 0RF celecoxib [Celebrex] 400 mg capsule 400 mg PO DAILY MDD 1 Qty: 30 2RF Rx Instructions: Not to be taken with Ibuprofen tizanidine 4 mg tablet 4 mg PO BID PRN (Reason: muscle spasticity) Qty: 60 1RF pantoprazole [Protonix] 20 mg tablet,delayed release (DR/EC) 20 mg PO DAILY fluticasone propionate [Flonase Allergy Relief] 50 mcg/actuation spray,suspension 2 spray intranasal DAILY Qty: 16 0RF Rx Instructions: administer into each nostril dextromethorphan-guaifenesin [Mucinex DM] 60-1,200 mg tablet extended release 12 hr 1 tab PO BID PRN (Reason: cough) Qty: 30 0RF aripiprazole 15 mg tablet 15 mg PO .HS Qty: 30 1RF duloxetine [Cymbalta] 30 mg capsule,delayed release(DR/EC) 30 mg PO .daily in AM Qty: 30 1RF Rx Instructions: In addition to 60mg in AM to = 90mg daily duloxetine 60 mg capsule,delayed release(DR/EC) 60 mg PO DAILY Qty: 30 1RF nicotine 21 mg/24 hr patch 24 hour 1 patch transdermal DAILY Qty: 28 1RF Referrals: Skyler Schrader NP [Primary Care Provider] - Coding Level of Care Code ED Web Worker for Griselda Fairbanks
--- NOTE | 2023-03-02 11:41 | ECG_ITS ---
[facility] Test Date: 2023-03-02 Pat Name: Aman Prince Department: Room: Gender: Male Strategic Sourcing Specialist: : 1990 Requested By: Jose Cuevas Order Number: [id number] Dian MD: Michelle Corona M.D. Measurements Intervals [place] Rate: 133 P: -16 CT: 127 QRS: 61 QRSD: 101 T: 54 QT: 284 QTc: 423 Interpretive Statements SINUS TACHYCARDIA INDETERMINATE AXIS INCOMPLETE RIGHT BUNDLE BRANCH BLOCK [90+ ms QRS DURATION, TERMINAL R IN V1/V2, 40+ ms S IN I/aVL/V4/V5/V6] ABNORMAL RHYTHM ECG No previous ECG available for comparison Electronically Signed On 03-02-2023 16:21:19 CDT by Michelle Corona M.D. [id number]
[2023-03-02] MEDS: sodium chloride 0.9% 1,000 ML 999 ML IV (12:00)
[2023-03-02] MEDS: metoprolol tartrate 1 mg/1 mL SDV 5 mL 5 MG IVP (12:00)
[2023-03-02 12:02] LABS: Basophils % 0.2 %; Hematocrit 43.9 % (42.0-52.0); Hemoglobin 14.7 g/dL (11.7-16.6); Lymphocytes % 12.2 %; Mean Corpuscular HGB Conc 33.5 g/dL (30.0-36.0); Mean Corpuscular Hemoglobin 31.2 pg (28.0-34.0); Mean Corpuscular Volume 93.2 fl (80-94); Monocytes # 0.9 10^3/uL (0.2-0.9); Monocytes % 5.6 %; Neutrophils % 81.6 %; Nucleated Red Blood Cells % 0 %; Platelet Count 151 10^3/cmm (130-400); Red Blood Count 4.71 10^6/uL (4.1-5.3); Red Cell Distribution Width 12.1 % (12.1-15.1); White Blood Count 16.5 10^3/uL (4.0-10.0)
[2023-03-02 12:17] LABS: Alanine Aminotransferase 12 U/L (0-41); Albumin Level 3.8 g/dL (3.5-5.2); Alkaline Phosphatase 103 U/L (40-130); Anion Gap 18.9 (5-19); Aspartate Amino Transferase 14 U/L (0-40); Blood Urea Nitrogen 12 mg/dL (6-20); Calcium 9.6 mg/dL (8.5-10.5); Carbon Dioxide 25 mmol/L (22-29); Chloride 94 mmol/L (98-107); Globulin 4.3 g/dL (1.3-4.6); Glomerular Filtration Rate 78.6 mL/min (90-130); Glucose 140 mg/dL (65-115); Osmolality Calculated 280 mOsm/kg (285-295); Potassium 3.9 mmol/L (3.5-5.1); Sodium 134 mmol/L (136-145); Total Bilirubin 0.9 mg/dL (0.15-1.2); Total Protein 8.1 g/dL (6.6-8.7)
[2023-03-02] MEDS: dexamethasone 10 mg/mL INJ IVP (12:45)
[2023-03-02] MEDS: ketorolac 30 mg/mL INJ IVP (13:24)
[2023-03-02] MEDS: albuterol 2.5 mg/3 mL Neb INHALATION (13:54)
--- NOTE | 2023-03-02 14:00 | CT_ITS ---
WS: [id number] CTA OF THE CHEST WITH PULMONARY EMBOLISM PROTOCOL TECHNIQUE: High-resolution contrast enhanced CTA of the chest with coronal and sagittal reformatted i mages with pulmonary embolism protocol. MIP images are also reviewed. CLINICAL INFORMATION: tachycardia, cp, dyspnea COMPARISON: None. DLP: 468.[address] scans at [facility] use at least one of these dose optimization techniques: automated e xposure control; mA and/or kV adjustment per patient size (includes targeted exams where dose is matc hed to clinical indication); or iterative reconstruction. FINDINGS: Extensive bilateral RIGHT greater than LEFT pulmonary embolus. This is worse in the RIGHT with occlus pepito thrombus in the RIGHT distal main pulmonary artery extending distally into the segmental and subs egmental pulmonary arteries. Extensive LEFT pulmonary embolus in the segmental and subsegmental pulmo nary arteries. Evidence of RIGHT heart strain with paradoxical septal motion. Normal caliber thoracic aorta. Hazy groundglass infiltrates in RIGHT upper lobe subpleural in location and some of which may represe nt pulmonary infarcts. Bibasilar atelectasis. No significant pleural fluid. No pericardial effusion. No mediastinal or hilar lymphadenopathy. No axillary lymphadenopathy. Adrenal glands are normal. Small esophageal hiatal hernia. CT/CT angio chest PE protcl [id number] IMPRESSION: 1. Extensive bilateral pulmonary embolus involving the RIGHT greater than LEFT segmental and subsegmental pulmonary arteries. This is worse on the RIGHT with extensive clot in the RIGHT distal main pulmonary artery extending distally. 2. Evidence of RIGHT heart strain with paradoxical septal deviation. 3. Bibasilar atelectasis. Groundglass and fibrotic appearing opacities in RIGH T upper lobe peripherally. This may be due to chronic infectious or inflammator y etiologies. Pulmonary infarcts not excluded. 4. No significant pleural fluid Notified Jose Cuevas DO at 03/02/2023 2:31 PM.
[2023-03-02] MEDS: iohexol 350 mg/mL 500 mL Btl (per mL) IV (14:19)
[2023-03-02] MEDS: cefTRIAXone 1,000 MG in sodium chloride 0.9% (plus) 50 ML 100 MG IV (14:41)
[2023-03-02] MEDS: heparin 5,000 unit/mL INJ 1 mL IV (15:18)
[2023-03-02] MEDS: heparin drip 25,000 UNIT/500 ML PREMIX 36 UNIT IV (15:27)
[2023-03-02 15:42] LABS: NT Pro B Type Natriuretic Pept 672 pg/mL (0-125)
[2023-03-02 16:26] LABS: Troponin T (5th) Once 41 ng/L (0-15)
== END 2023-03-02 17:15 | disposition short-term general hospital (02) ==
PROVIDERS: Emergency Provider Emergency Medicine; PCP Nurse Practitioner Family
DX: I26.99 Other pulmonary embolism without acute cor pulmonale (principal); R00.0 Tachycardia, unspecified; R09.02 Hypoxemia; F17.210 Nicotine dependence, cigarettes, uncomplicated
CPT/HCPCS: 36415; 71045; 71275; 80053; 83880; 84484; 85025; 87040; 93005; 94640; 96365; 96366; 96375; 99285; 99291; J0696; J1100; J1644; J1885; J3490; J7030; J7613; Q9967